=== PATIENT | female | born 1990 | race Two or more races ===

== ENCOUNTER 2017-09-06 19:41 | Emergency (ER) | payer SELFPAY ==
[2017-09-06 20:28] LABS: URINE HCG POC HCG NEGATIVE (Negative)
[2017-09-06 20:31] LABS: ADD MAN DIFF? NO
[2017-09-06 20:35] LABS: BASO % 0 % (0-3); EOS # 0.2 x10^3/uL (0.0-0.7); EOS % 2 % (0-3); HEMATOCRIT 39.2 % (36.0-47.0); HEMOGLOBIN 13.2 g/dL (12.0-15.5); LYMPH # 2.4 x10^3/uL (1.0-4.8); LYMPH % 22 % (24-48); MEAN CORPUSCULAR HEMOGLOBIN 28 pg (25-35); MEAN CORPUSCULAR HGB CONC 34 g/dL (31-37); MEAN CORPUSCULAR VOLUME 84 fL (79-100); MONO # 0.4 x10^3/uL (0.0-1.1); MONO % 4 % (0-9); NEUT # 7.8 x10^3uL (1.8-7.7); NEUT % 72 % (31-73); PLATELET COUNT 246 x10^3/uL (140-400); RED BLOOD COUNT 4.69 x10^6/uL (3.50-5.40); RED CELL DISTRIBUTION WIDTH 14.4 % (11.5-14.5); WHITE BLOOD COUNT 10.9 x10^3/uL (4.0-11.0)
[2017-09-06 20:36] LABS: BILIRUBIN,URINE NEGATIVE (NEG); CLARITY,URINE CLEAR; COLOR,URINE YELLOW; GLUCOSE,URINE NEGATIVE (NEG); NITRITE,URINE POSITIVE (NEG); PH,URINE 6.5; PROTEIN,URINE NEGATIVE (NEG-TRACE)
[2017-09-06 20:42] LABS: ANION GAP 8 (6-14); BLOOD UREA NITROGEN 9 mg/dL (7-20); BUN/CREATININE RATIO 15 (6-20); CALCIUM 8.8 mg/dL (8.5-10.1); CARBON DIOXIDE 27 mmol/L (21-32); CHLORIDE 107 mmol/L (98-107); CREATININE 0.6 mg/dL (0.6-1.0); GFR 120.8; GLUCOSE 94 mg/dL (70-99); POTASSIUM 3.2 mmol/L (3.5-5.1); SODIUM 142 mmol/L (136-145)
[2017-09-06 20:47] LABS: BACTERIA,URINE MANY /HPF (0-FEW); RBC,URINE 0 /HPF (0-2); SQUAMOUS EPITHELIAL CELL,UR MANY /LPF
[2017-09-06 20:48] LABS: ALBUMIN 3.8 g/dL (3.4-5.0); ALK PHOS 79 U/L (46-116); ALT (SGPT) 21 U/L (14-59); AST (SGOT) 14 U/L (15-37); TOTAL BILIRUBIN 0.2 mg/dL (0.2-1.0); TOTAL PROTEIN 7.6 g/dL (6.4-8.2)
[2017-09-06] MEDS: FLUORESCEIN OPHTH TEST STRIP. OD ×2 (21:15)
[2017-09-06] MEDS: TETRACAINE 0.5% OPHTH SOLUTION 4ML BOTTLE. OD ×2 (21:15)
[2017-09-06] MEDS: POTASSIUM CHLORIDE 20 MEQ TABLET.ER. PO ×2 (21:40)
== END 2017-09-06 21:42 | disposition home or self-care (01) ==
LOC: ER 19:41
DX: H57.11 Ocular pain, right eye (principal); J01.00 Acute maxillary sinusitis, unspecified; H53.8 Other visual disturbances; N39.0 Urinary tract infection, site not specified; E87.6 Hypokalemia
CPT/HCPCS: 36415; 70450; 70486; 80053; 81001; 81025; 85025; 87086; 87186; 99285-25

== ENCOUNTER 2019-05-07 18:40 | Emergency (ER) | payer SELFPAY ==
[~2019-05-07] VITALS: Ht 154.9 cm; Wt 68.0 kg
[~2019-05-07 18:40] MED LIST: AMOX500C PO; NITR100C62 PO; OFLO5DRO OD
[2019-05-07 19:07] VITALS: BP 155/90
--- NOTE | 2019-05-07 19:51 | PHYS DOC ---
Past Medical History Past Medical History: No Pertinent History (ARIELLE CROUCH APRN) Past Surgical History: No Surgical History (ARIELLE CROUCH APRN) Alcohol Use: None Drug Use: None (ARIELLE CROUCH APRN) Attending Signature I have participated in the care of this patient and I have reviewed and agree with all pertinent clinical information above including history, exam, and recommendations. (ANGEL HUNT MD) Adult General Chief Complaint Chief Complaint: ANIMAL BITE HPI HPI Patient is a 28 year old female presents to the ER after being bit by dog around 6:45 PM. She was bit on the right breast with a superficial bite, and was also bit in the left upper arm with 2 deep lacerations. She states that she had a tetanus shot a month ago. (ARIELLE CROUCH APRN) Review of Systems Review of Systems Constitutional: Denies fever or chills [] Eyes: Denies change in visual acuity, redness, or eye pain [] HENT: Denies nasal congestion or sore throat [] Respiratory: Denies cough or shortness of breath [] Cardiovascular: No additional information not addressed in HPI [] GI: Denies abdominal pain, nausea, vomiting, bloody stools or diarrhea [] : Denies dysuria or hematuria [] Musculoskeletal: Denies back pain or joint pain [] Integument: Denies rash or skin lesions [] Neurologic: Denies headache, focal weakness or sensory changes [] Endocrine: Denies polyuria or polydipsia [] All other systems were reviewed and found to be within normal limits, except as documented in this note. (ARIELLE CROUCH APRN) Current Medications Current Medications Current Medications Medications (Trade) Dose Ordered Sig/Nayan Start Time Stop Time Status Last Admin Dose Admin Acetaminophen (Tylenol) 1,000 mg 1X STAT 05/07/19 20:23 05/07/19 20:25 DC 05/07/19 20:23 1,000 MG Cefazolin Sodium 50 ml @ 100 mls/hr 1X ONCE 05/07/19 20:00 05/07/19 20:29 DC 05/07/19 20:00 100 MLS/HR Lidocaine HCl 20 ml 1X ONCE 05/07/19 21:00 05/07/19 21:01 DC 05/07/19 21:00 20 ML Morphine Sulfate (Morphine Sulfate) 4 mg 1X ONCE 05/07/19 20:00 05/07/19 20:24 DC Neomycin/ Polymyxin/ Bacitracin (Triple Antibiotic Ointment) 1 pkt 1X ONCE 05/07/19 22:15 05/07/19 22:16 DC 05/07/19 22:22 1 PKT (ANGEL HUNT MD) Allergies Allergies Allergies Coded Allergies Type Severity Reaction Last Updated Verified No Known Drug Allergies 09/06/17 No (ANGEL HUNT MD) Physical Exam Physical Exam Constitutional: Well developed, well nourished, no acute distress, non-toxic appearance. [] HENT: Normocephalic, atraumatic, bilateral external ears normal, oropharynx moist, no oral exudates, nose normal. [] Eyes: PERRLA, EOMI, conjunctiva normal, no discharge. [] Neck: Normal range of motion, no tenderness, supple, no stridor. [] Cardiovascular:Heart rate regular rhythm, no murmur [] Lungs & Thorax: Bilateral breath sounds clear to auscultation [] Abdomen: Bowel sounds normal, soft, no tenderness, no masses, no pulsatile masses. [] Skin: 2 lacerations that are 3 cm x 1.5 cm with about 1 cm in between wound. The muscle is exposed in the wound. Back: No tenderness, no CVA tenderness. [] Extremities: No tenderness, no cyanosis, no clubbing, ROM intact, no edema. [] Neurologic: Alert and oriented X 3, normal motor function, normal sensory function, no focal deficits noted. [] Psychologic: Affect normal, judgement normal, mood normal. [] (ARIELLE CROUCH APRN) Current Patient Data Vital Signs Vital Signs Date Time Temp Pulse Resp B/P (MAP) Pulse Ox O2 Delivery O2 Flow Rate FiO2 05/07/19 19:07 98.7 108 20 155/90 (111) 99 Room Air 98.7 (ANGEL HUNT MD) Lab Values Laboratory Tests Test 05/07/19 19:50 White Blood Count 11.2 x10^3/uL (4.0-11.0) H Red Blood Count 4.49 x10^6/uL (3.50-5.40) Hemoglobin 11.6 g/dL (12.0-15.5) L Hematocrit 36.0 % (36.0-47.0) Mean Corpuscular Volume 80 fL (79-100) Mean Corpuscular Hemoglobin 26 pg (25-35) Mean Corpuscular Hemoglobin Concent 32 g/dL (31-37) Red Cell Distribution Width 15.2 % (11.5-14.5) H Platelet Count 326 x10^3/uL (140-400) Neutrophils (%) (Auto) 73 % (31-73) Lymphocytes (%) (Auto) 18 % (24-48) L Monocytes (%) (Auto) 7 % (0-9) Eosinophils (%) (Auto) 2 % (0-3) Basophils (%) (Auto) 1 % (0-3) Neutrophils # (Auto) 8.2 x10^3/uL (1.8-7.7) H Lymphocytes # (Auto) 2.0 x10^3/uL (1.0-4.8) Monocytes # (Auto) 0.7 x10^3/uL (0.0-1.1) Eosinophils # (Auto) 0.2 x10^3/uL (0.0-0.7) Basophils # (Auto) 0.1 x10^3/uL (0.0-0.2) Sodium Level 140 mmol/L (136-145) Potassium Level 3.5 mmol/L (3.5-5.1) Chloride Level 104 mmol/L (98-107) Carbon Dioxide Level 27 mmol/L (21-32) Anion Gap 9 (6-14) Blood Urea Nitrogen 15 mg/dL (7-20) Creatinine 0.7 mg/dL (0.6-1.0) Estimated GFR (Cockcroft-Gault) 100.4 BUN/Creatinine Ratio 21 (6-20) H Glucose Level 91 mg/dL (70-99) Calcium Level 9.5 mg/dL (8.5-10.1) Total Bilirubin 0.4 mg/dL (0.2-1.0) Aspartate Amino Transferase (AST) 12 U/L (15-37) L Alanine Aminotransferase (ALT) 18 U/L (14-59) Alkaline Phosphatase 87 U/L (46-116) Total Protein 8.5 g/dL (6.4-8.2) H Albumin 4.4 g/dL (3.4-5.0) Albumin/Globulin Ratio 1.1 (1.0-1.7) Laboratory Tests 05/07/19 19:50 Laboratory Tests 05/07/19 19:50 (ANGEL HUNT MD) Lab Values Laboratory Tests Test 05/07/19 19:50 White Blood Count 11.2 x10^3/uL (4.0-11.0) H Red Blood Count 4.49 x10^6/uL (3.50-5.40) Hemoglobin 11.6 g/dL (12.0-15.5) L Hematocrit 36.0 % (36.0-47.0) Mean Corpuscular Volume 80 fL (79-100) Mean Corpuscular Hemoglobin 26 pg (25-35) Mean Corpuscular Hemoglobin Concent 32 g/dL (31-37) Red Cell Distribution Width 15.2 % (11.5-14.5) H Platelet Count 326 x10^3/uL (140-400) Neutrophils (%) (Auto) 73 % (31-73) Lymphocytes (%) (Auto) 18 % (24-48) L Monocytes (%) (Auto) 7 % (0-9) Eosinophils (%) (Auto) 2 % (0-3) Basophils (%) (Auto) 1 % (0-3) Neutrophils # (Auto) 8.2 x10^3/uL (1.8-7.7) H Lymphocytes # (Auto) 2.0 x10^3/uL (1.0-4.8) Monocytes # (Auto) 0.7 x10^3/uL (0.0-1.1) Eosinophils # (Auto) 0.2 x10^3/uL (0.0-0.7) Basophils # (Auto) 0.1 x10^3/uL (0.0-0.2) Sodium Level 140 mmol/L (136-145) Potassium Level 3.5 mmol/L (3.5-5.1) Chloride Level 104 mmol/L (98-107) Carbon Dioxide Level 27 mmol/L (21-32) Anion Gap 9 (6-14) Blood Urea Nitrogen 15 mg/dL (7-20) Creatinine 0.7 mg/dL (0.6-1.0) Estimated GFR (Cockcroft-Gault) 100.4 BUN/Creatinine Ratio 21 (6-20) H Glucose Level 91 mg/dL (70-99) Calcium Level 9.5 mg/dL (8.5-10.1) Total Bilirubin 0.4 mg/dL (0.2-1.0) Aspartate Amino Transferase (AST) 12 U/L (15-37) L Alanine Aminotransferase (ALT) 18 U/L (14-59) Alkaline Phosphatase 87 U/L (46-116) Total Protein 8.5 g/dL (6.4-8.2) H Albumin 4.4 g/dL (3.4-5.0) Albumin/Globulin Ratio 1.1 (1.0-1.7) Laboratory Tests 05/07/19 19:50 Laboratory Tests 05/07/19 19:50 (ARIELLE CROUCH APRN) EKG EKG [] (ARIELLE CROUCH APRN) Radiology/Procedures Radiology/Procedures Indication: Animal Bites L Upper Arm. Procedure: The patient was placed in the appropriate position and anesthesia around the laceration was 2% lidocaine. The area was then cleansed with 270 mL of normal saline at high pressure. The laceration was closed with 8, 3-0 sutures. The area was sutured loosely with large spaces between sutures to help with the risk of infection. The wound area was then dressed with dressing Total repaired wound length: 3 cm x 2 Complications: None [][facility] [address] [place] [address] IMAGING REPORT Signed PATIENT: SHAAN GUILLENCOUNT: [id number] : 1990 LOCATION: ER AGE: 28 SEX: F EXAM STATUS: REG ER ORD. PHYSICIAN: ARIELLE CROUCH APRN REASON: dog bite to upper L arm. PROCEDURE: HUMERUS LEFT Left humerus AP lateral x-rays HISTORY: Dog bite left upper extremity. FINDINGS: Lead apron density obscures the humeral head. There is extensive soft tissue emphysema and laceration defect at the anterior upper extremity overlying the mid to distal femoral shaft. No opaque foreign body evident. No fracture or dislocation. IMPRESSION: No acute osseous injury. Soft tissue injury as described above. Electronically signed by: Feliberto Boss MD (05/07/2019 8:49 PM) [facility] DICTATED and SIGNED BY: FELIBERTO BOSS MD DATE: 05/07/192048 (ARIELLE CROUCH APRN) Course & Med Decision Making Course & Med Decision Making Pertinent Labs and Imaging studies reviewed. (See chart for details) Will get x-ray, labs, give Cefazolin, and will discuss case with Dr. Mcdonald. Discussed case with Dr. Mcdonald (Ortho) who recommends repair in the ER and to loosely repair. Repaired in ER and will d/c home. Discussed with patient to return at any signs of infection. (ARIELLE CROUCH APRN) Dragon Disclaimer Dragon Disclaimer This electronic medical record was generated, in whole or in part, using a voice recognition dictation system. (ARIELLE CROUCH APRN) Departure Departure Impression: Primary Impression: Animal bite Additional Impression: Laceration Disposition: HOME, SELF-CARE Condition: STABLE Referrals: NO PCP (PCP) Patient Instructions: Animal Bite, Laceration Care, Adult Additional Instructions: Thank you for visiting [facility]. We appreciate you trusting us with your care. If any additional problems come up don't hesitate to return to visit us. Please follow up with your primary care provider so they can plan additional care if needed and know about the problem that you had. If symptoms worsen come back to the Emergency Department. Any concerning symptoms that start such as chest pain, shortness of air, weakness or numbness on one side of the body, running high fevers or any other concerning symptoms return to the ER. You have been prescribed an antibiotic today to help fight your infection. Please take all of the antibiotic as directed. If after 48 hours the infection is not improving, please return for more care. If the infection worsens, return to ER for additional care. Please return to the emergency department any sign of infection. Please have sutures removed in 7 days. Scripts Amoxicillin/Potassium Clav (AUGMENTIN 875-125 TABLET) 1 Each Tablet 1 TAB PO BID for 7 Days, #14 TAB 0 Refills Prov: ARIELLE CROUCH APRN 05/07/19 Problem Qualifiers ARIELLE CROUCH APRN May 07, 2019 19:51 ANGEL HUNT MD May 08, 2019 02:42
[2019-05-07] MEDS ORDERED: MORPHINE SULFATE 4 MG/ML VIAL. IV ONE (20:00)
[2019-05-07 20:01] LABS: BASO # 0.1 x10^3/uL (0.0-0.2); BASO % 1 % (0-3); EOS # 0.2 x10^3/uL (0.0-0.7); EOS % 2 % (0-3); HEMOGLOBIN 11.6 g/dL (12.0-15.5); LYMPH % 18 % (24-48); MEAN CORPUSCULAR HEMOGLOBIN 26 pg (25-35); MEAN CORPUSCULAR HGB CONC 32 g/dL (31-37); MEAN CORPUSCULAR VOLUME 80 fL (79-100); MONO # 0.7 x10^3/uL (0.0-1.1); MONO % 7 % (0-9); NEUT # 8.2 x10^3/uL (1.8-7.7); NEUT % 73 % (31-73); PLATELET COUNT 326 x10^3/uL (140-400); RED BLOOD COUNT 4.49 x10^6/uL (3.50-5.40); RED CELL DISTRIBUTION WIDTH 15.2 % (11.5-14.5); WHITE BLOOD COUNT 11.2 x10^3/uL (4.0-11.0)
[2019-05-07] MEDS ORDERED: ACETAMINOPHEN 500 MG TABLET PO STA (20:23)
[2019-05-07 20:28] LABS: CALCIUM 9.5 mg/dL (8.5-10.1); CREATININE 0.7 mg/dL (0.6-1.0); GFR 100.4; POTASSIUM 3.5 mmol/L (3.5-5.1)
[2019-05-07 20:33] LABS: ALBUMIN 4.4 g/dL (3.4-5.0); ALBUMIN/GLOBULIN RATIO 1.1 (1.0-1.7); TOTAL BILIRUBIN 0.4 mg/dL (0.2-1.0); TOTAL PROTEIN 8.5 g/dL (6.4-8.2)
--- NOTE | 2019-05-07 20:52 | RAD ---
Left humerus AP lateral x-rays HISTORY: Dog bite left upper extremity. FINDINGS: Lead apron density obscures the humeral head. There is extensive soft tissue emphysema and laceration defect at the anterior upper extremity overlying the mid to distal femoral shaft. No opaque foreign body evident. No fracture or dislocation. IMPRESSION: No acute osseous injury. Soft tissue injury as described above. Electronically signed by: Harjeet Boss MD (05/07/2019 8:49 PM) [facility]
[2019-05-07] MEDS ORDERED: LIDOCAINE 2% 20 ML VIAL. IJ ONE (21:00)
[2019-05-07] MEDS ORDERED: AMOX1TAB61 PO (22:14)
[2019-05-07] MEDS ORDERED: NEOMY/BACITR/POLYMYXIN OINT PACKET. TP ONE (22:15)
== END 2019-05-07 22:24 | disposition home or self-care (01) ==
LOC: ER 18:40
DX: S41.112A Laceration without foreign body of left upper arm, initial encounter (principal); W54.0XXA Bitten by dog, initial encounter; Y93.89 Activity, other specified; Y92.89 Other specified places as the place of occurrence of the external cause; Y99.8 Other external cause status
CPT/HCPCS: 12002; 36415; 73060; 80053; 85025; 96365; 96366; 99285; J0690; J2001

== ENCOUNTER 2021-09-21 18:04 | Emergency (ER) | payer SELFPAY ==
[~2021-09-21] VITALS: Ht 154.9 cm; Wt 67.7 kg
[~2021-09-21 18:04] MED LIST changes: +AMOX1TAB61 PO
[2021-09-21] MEDS ORDERED: KETOROLAC 60 MG/2 ML VIAL. IM ONE (20:00)
--- NOTE | 2021-09-21 20:08 | PHYS DOC ---
Past Medical History Past Medical History: No Pertinent History Past Surgical History: No Surgical History Smoking Status: Never Smoker Alcohol Use: None Drug Use: None General Adult EDM: Chief Complaint: WRIST PAIN HPI: HPI: Patient is a 31 year old female who presents with left wrist pain. Patient states her pain is intermittent 10/10 radiating to her left shoulder. She states the pain is typically worse at night, and sometimes wakes her from sleep. 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 The pain limits her range of motion of both her wrist and her shoulder. She denies weakness, paresthesias, skin color changes. Patient has no other complaints at this time. Review of Systems: Review of Systems: ROS negative or noncontributory except as mentioned in HPI. Heart Score: C/O Chest Pain: No Current Medications: Current Medications Medications (Trade) Dose Ordered Sig/Nayan Start Time Stop Time Status Last Admin Dose Admin Ketorolac Tromethamine (Toradol Im) 60 mg 1X ONCE 09/21/21 20:00 09/21/21 20:01 DC Allergies: Allergies: Allergies Coded Allergies Type Severity Reaction Last Updated Verified No Known Drug Allergies 09/06/17 No Physical Exam: PE: Constitutional: Well developed, well nourished, no acute distress, non-toxic appearance. HENT: Normocephalic, atraumatic, bilateral external ears normal, nose normal. Eyes: EOMI, conjunctiva normal, no discharge. Neck: Normal range of motion, no tenderness, no stridor. Skin: Warm, dry, no erythema, no rash. Extremities: Left wrist tender to touch without swelling or erythema, active range of motion limited secondary to pain, passive range of motion intact, left shoulder nontender with intact range of motion. Extremities otherwise no tenderness, no cyanosis, no clubbing, ROM intact, no edema, neurovascularly intact. Neurologic: Alert and oriented x4, no focal deficits noted, pain on Tinel's sign limited to wrist, does not travel proximally or distally. Unable to evaluate Phalen sign secondary to patient pain on range of motion. Current Patient Data: Vital Signs: Vital Signs Date Time Temp Pulse Resp B/P (MAP) Pulse Ox O2 Delivery O2 Flow Rate FiO2 09/21/21 21:00 101 18 133/75 (94) 100 Room Air 09/21/21 18:04 98.7 84 16 142/94 (110) 97 Room Air 98.7 Radiology/Procedures: Radiology/Procedures: PROCEDURE: WRIST 3V LEFT Three-view left wrist dated 09/21/2021. No comparison available. CLINICAL INDICATION: Pain. FINDINGS: 3 views left wrist show normal bony alignment. No displaced fracture. No periostitis or bone destruction. No acute osseous or articular abnormality. IMPRESSION: No acute radiographic abnormality. Electronically signed by: Mark Hoskins MD (09/21/2021 8:35 PM) [facility] [place] Course & Med Decision Making: Course & Med Decision Making Pertinent Labs and Imaging studies reviewed. 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 Patient history mary picious for carpal tunnel syndrome, however exam does not reveal typical findings. X-ray obtained to evaluate for any acute abnormality able to be evaluated. Patient made aware that there are no acute abnormalities seen on plain films. However, she should follow-up with her primary care doctor and/or orthopedics regarding further evaluation and management of her chronic, although intermittent, left upper extremity pain. In the meantime, patient provided with Velcro wrist splint to use while working and while asleep. Patient advised to take [id number] NSAIDs per box instructions. Patient questions were answered. She understands and is agreeable to discharge plan. Bart Disclaimer: Bart Disclaimer: This electronic medical record was generated, in whole or in part, using a voice recognition dictation system. Departure Departure Impression: Primary Impression: Diffuse pain in left upper extremity Disposition: 01 HOME / SELF CARE / HOMELESS Condition: STABLE Referrals: NO PCP (PCP) NOLA MENARD Jr. DO Patient Instructions: Carpal Tunnel Syndrome, [id number] Additional Instructions: EMERGENCY DEPARTMENT GENERAL DISCHARGE INSTRUCTIONS Thank you for coming to [facility] Emergency Department (ED) today and trusting us with you care. We trust that you had a positive exp erience in our Emergency Department. If you wish to speak to the department management, you may call the director at . YOUR FOLLOW UP INSTRUCTIONS ARE FOLLOWS: 1. Follow up with your primary care doctor. If you do not have a primary doc tor, please ask for a resource list of physicians or clinics that may be able to assist you with follow up care. 2. The emergency provider has interpreted your imaging studies, if any were ordered. The radiology currency exchange specialist also reviewed them. If there is a change in the findings, you will be notified in 48 hours when at all possible. 3. If a lab test or culture has been done, your results will be reviewed and you will be notified if you need a change in treatment. 4. Follow instructions verbalized to you and refer to the printouts if needed. ADDITIONAL INSTRUCTIONS AND INFORMATION: 1. Your care today has been supervised by a physician who is specially trained in emergency care. Many problems require more than one evaluation for a complete diagnosis and treatment. We recommend that you schedule your follow up appointment as recommended to ensure complete treatment of you illness or injury. If you are unable to obtain follow up care and continue to have a problem, or if your condition worsens, we recommend that you return to the ED. 2. We are not able to safely determine your condition over the phone nor are we able to give sound medical advice over the phone. For these safety reasons, if you call for medical advice we will ask you to come to the ED for further evaluation. 3. If you have any questions regarding these discharge instructions please call the ED at . SAFETY INFORMATION: In the interest of safety, wellness, and injury prevention; we encourage you to wear your seat belt, if you smoke; quite smoking, and we encourage family to use a protective helmet for bicycling and other sporting events that present an increased risk for head injury. IF YOUR SYMPTOMS WORSEN OR NEW SYMPTOMS DEVELOP, OR YOU HAVE CONCERNS ABOUT YOUR CONDITION; OR IF YOUR CONDITION WORSENS WHILE YOU ARE WAITING FOR YOUR FOLLOW UP APPOINTMENT; EITHER CONTACT YOUR PRIMARY CARE DOCTOR, THE PHYSICIAN WHOSE NAME AND NUMBER YOU WERE GIVEN, OR RETURN TO THE ED IMMEDIATELY. YARON KASPER Sep 21, 2021 20:08
--- NOTE | 2021-09-21 20:37 | RAD ---
Three-view left wrist dated 09/21/2021. No comparison available. CLINICAL INDICATION: Pain. FINDINGS: 3 views left wrist show normal bony alignment. No displaced fracture. No periostitis or bone destruct ion. No acute osseous or articular abnormality. IMPRESSION: No acute radiographic abnormality. Electronically signed by: Mark Hoskins MD (09/21/2021 8:35 PM) [facility]
[2021-09-21 21:00] VITALS: BP 133/75
== END 2021-09-21 21:00 | disposition home or self-care (01) ==
LOC: ER 18:04
DX: M25.532 Pain in left wrist (principal); M25.512 Pain in left shoulder; G89.11 Acute pain due to trauma; X58.XXXA Exposure to other specified factors, initial encounter; Y93.89 Activity, other specified; Y92.89 Other specified places as the place of occurrence of the external cause; Y99.8 Other external cause status
CPT/HCPCS: 29125; 73120; 96372; 99283; J1885